=== PATIENT | female | born 1935 | race Caucasian/White ===

== ENCOUNTER 2017-04-01 11:45 | Inpatient (IN) ==
[2017-04-01] MEDS ORDERED: HYDROmorphone 2 MG/1 ML VIAL ONE (13:04)
[2017-04-01] MEDS ORDERED: ONDANSETRON 4 MG/2 ML VIAL ONE (13:04)
[2017-04-01] MEDS ORDERED: HYDROmorphone 2 MG/1 ML VIAL IV STA (13:11)
[2017-04-01] MEDS ORDERED: ONDANSETRON 4 MG/2 ML VIAL IV STA (13:12)
[2017-04-01 14:00] LABS: Basophils # 0.1 10*3/uL (0.0-0.2); Basophils % 0.7 % (0.0-0.8); Eosinophils # 0.1 10*3/uL (0.0-0.87); Eosinophils % 0.7 % (0.00-10.9); Hematocrit 29.6 VOL% (35.7-47.0); Hemoglobin 8.9 GM/DL (12.0-16.0); Immature Granulocytes % 0.4 %; Immature Granulocytes Absolute 0.04 #; Lymphocytes # 1.2 10*3/uL (1.4-4.0); Lymphocytes % 11.8 % (21.3-54.2); Mean Corpuscular HGB Conc 30.1 GM/DL (32-36); Mean Corpuscular Hemoglobin 24 PG (27-34); Mean Corpuscular Volume 81.1 FL (87-102); Mean Platelet Volume 10.5 FL (9.6-12.0); Monocytes # 0.4 10*3/uL (0.11-0.8); Monocytes % 4.3 % (1.7-12.7); Neutrophils # 8.4 10*3/uL (1.4-7.4); Neutrophils % 82.1 % (38.7-73.9); Platelet Count 221 T/CUMM (130-400); Red Blood Count 3.65 MC/CUMM (3.8-5.5); Red Cell Distribution Width 14.3 % (9.3-17.3); White Blood Count 10.2 T/CUMM (4-12)
[2017-04-01 14:08] LABS: INR 1.1; PT Patient Result 11.8 SECS
[2017-04-01 14:18] LABS: Albumin 3.3 G/DL (3.4-5.0); Bilirubin,Total 1.2 MG/DL (0.2-1.0); Calcium 8.4 MG/DL (8.5-10.1); Osmolality,Calculated 284.3 MOS/KG (273-304); Potassium 3.9 MMOL/L (3.5-5.1); Total Protein 6.4 G/DL (6.4-8.3)
[2017-04-01] MEDS ORDERED: ACETAMINOPHEN 325 MG TABLET PO PRN (15:04)
[2017-04-01] MEDS ORDERED: HYDROmorphone 2 MG/1 ML VIAL IV PRN (15:04)
[2017-04-01] MEDS ORDERED: DEXTROSE 50% 25 GM/50 ML VIAL IV PRN (16:39)
[2017-04-01] MEDS ORDERED: GLUCAGON 1 MG VIAL IM PRN (16:39)
[2017-04-01] MEDS: DEXT 5% LACT RING KCL 20 MEQ 20 MEQ/1,000 ML BAG IV SCH (18:00)
[2017-04-01] MEDS: INSULIN LISPRO 100 UNIT/ML SUBCUT SCH (21:07)
[2017-04-01] MEDS: METOPROLOL TARTRATE 25 MG TABLET PO SCH (21:08)
[2017-04-01] MEDS: DOCUSATE SODIUM 100 MG CAPSULE PO SCH (21:08)
[2017-04-01] MEDS: ATORVASTATIN 80 MG TABLET PO SCH (21:08)
[2017-04-01] MEDS: MORPHINE 2 MG/1 ML SYRINGE IV PRN (22:12)
[2017-04-02] MEDS: DEXT 5% LACT RING KCL 20 MEQ 20 MEQ/1,000 ML BAG IV SCH (04:00)
[2017-04-02 04:10] LABS: Basophils % 0.4 % (0.0-0.8); Eosinophils # 0.2 10*3/uL (0.0-0.87); Eosinophils % 1.6 % (0.00-10.9); Hematocrit 26.6 VOL% (35.7-47.0); Immature Granulocytes % 0.3 %; Immature Granulocytes Absolute 0.03 #; Lymphocytes # 1.8 10*3/uL (1.4-4.0); Lymphocytes % 19.5 % (21.3-54.2); Mean Corpuscular HGB Conc 30.1 GM/DL (32-36); Mean Corpuscular Hemoglobin 25 PG (27-34); Mean Corpuscular Volume 81.6 FL (87-102); Mean Platelet Volume 10.4 FL (9.6-12.0); Monocytes # 0.6 10*3/uL (0.11-0.8); Monocytes % 6.1 % (1.7-12.7); Neutrophils # 6.8 10*3/uL (1.4-7.4); Neutrophils % 72.1 % (38.7-73.9); Platelet Count 209 T/CUMM (130-400); Red Blood Count 3.26 MC/CUMM (3.8-5.5); Red Cell Distribution Width 14.3 % (9.3-17.3); White Blood Count 9.5 T/CUMM (4-12)
[2017-04-02 04:44] LABS: Calcium 8.2 MG/DL (8.5-10.1); Osmolality,Calculated 288.3 MOS/KG (273-304); Potassium 4.5 MMOL/L (3.5-5.1)
[2017-04-02] MEDS: MORPHINE 2 MG/1 ML SYRINGE IV PRN ×3 (05:52→21:58)
[2017-04-02] MEDS ORDERED: SODIUM CHLORIDE 0.9% 1,000 ML IV PRN ×2 (07:26→16:42)
[2017-04-02 08:47] LABS: Hematocrit 26.8 VOL% (35.7-47.0); Hemoglobin 8.1 GM/DL (12.0-16.0)
[2017-04-02] MEDS: METOPROLOL TARTRATE 25 MG TABLET PO SCH ×2 (09:49→21:58)
[2017-04-02] MEDS: VALSARTAN/HCTZ 80-12.5 MG TABLET PO SCH (09:49)
[2017-04-02] MEDS: DOCUSATE SODIUM 100 MG CAPSULE PO SCH ×2 (09:49→21:57)
[2017-04-02] MEDS: PANTOPRAZOLE 40 MG TABLET PO SCH (09:49)
[2017-04-02] MEDS: INSULIN LISPRO 100 UNIT/ML SUBCUT SCH ×3 (09:49→17:00)
[2017-04-02] MEDS ORDERED: BACITRACIN OINT 0.9 GM PACK TOP ONE (10:13)
[2017-04-02 10:15] LABS: Apearance,Urine CLEAR (Clear); Bacteria,Urine Occasional /HPF (Few); Bilirubin,Urine Negative (Negative); Blood, Urine Small mg/dL (Negative); Glucose,Urine (UA) Negative (Negative); Ketones,Urine Negative (Negative); Mucus,Urine Occasional /LPF (Occasional); Nitrite,Urine Negative (Negative); Protein,Urine Negative; RBC,Urine 3 /HPF (0-4); Squamous Epithelial Cell,Urine Occasional /HPF (0-10); Urine Color Colorless (Yellow); Urine Specific Gravity 1.003 (1.001-1.035); Urine Urobilinogen < 2.0 EU/DL (0.2-1.0); WBC,Urine 6 /HPF (0-6)
[2017-04-02] MEDS ORDERED: ceFAZolin 1,000 MG in SYRINGE 1 EACH IV ONE (11:05)
[2017-04-02] MEDS ORDERED: ceFAZolin 1,000 MG VIAL ONE (11:06)
[2017-04-02 12:16] LABS: Free T4 (Free Thyroxine) 1.03 NG/DL (0.76-1.46); Thyroid Stimulating Hormone 1.2 uIU/ml (0.358-3.74)
[2017-04-02] MEDS ORDERED: PROPOFOL 200 MG/20 ML VIAL IV ONE (12:27)
[2017-04-02] MEDS ORDERED: fentaNYL 100 MCG/2 ML VIAL ONE (12:27)
[2017-04-02] MEDS ORDERED: ONDANSETRON 4 MG/2 ML VIAL ONE ×2 (12:27→12:50)
[2017-04-02] MEDS ORDERED: MAGNESIUM HYDROXIDE SUSP 30 ML UDCUP PO PRN (12:30)
[2017-04-02] MEDS ORDERED: ROCURONIUM 100 MG/10 ML VIAL IV ONE (12:31)
[2017-04-02] MEDS ORDERED: ONDANSETRON 4 MG/2 ML VIAL IV PRN (12:36)
[2017-04-02] MEDS ORDERED: HYDROmorphone 2 MG/1 ML VIAL ONE (12:50)
[2017-04-02] MEDS: HYDROmorphone 2 MG/1 ML VIAL IV PRN ×2 (12:53→13:03)
[2017-04-02 12:59] LABS: Folate 19.2 NG/ML (5.4-24.0); Vitamin B12 211 PG/ML (211-911)
[2017-04-02 14:21] LABS: Basophils % 0.3 % (0.0-0.8); Eosinophils # 0.2 10*3/uL (0.0-0.87); Eosinophils % 1.6 % (0.00-10.9); Hematocrit 26.1 VOL% (35.7-47.0); Immature Granulocytes % 0.5 %; Immature Granulocytes Absolute 0.06 #; Lymphocytes # 1.6 10*3/uL (1.4-4.0); Lymphocytes % 14.1 % (21.3-54.2); Mean Corpuscular HGB Conc 30.7 GM/DL (32-36); Mean Corpuscular Hemoglobin 25 PG (27-34); Mean Corpuscular Volume 81.1 FL (87-102); Mean Platelet Volume 10.7 FL (9.6-12.0); Monocytes # 0.6 10*3/uL (0.11-0.8); Monocytes % 5.3 % (1.7-12.7); Neutrophils # 9.1 10*3/uL (1.4-7.4); Neutrophils % 78.2 % (38.7-73.9); Platelet Count 207 T/CUMM (130-400); Red Blood Count 3.22 MC/CUMM (3.8-5.5); Red Cell Distribution Width 14.3 % (9.3-17.3); White Blood Count 11.6 T/CUMM (4-12)
[2017-04-02 15:28] LABS: Sedimentation Rate-Westergren 35 MM/HR (0-30)
[2017-04-02] MEDS: ONDANSETRON 4 MG/2 ML VIAL IV PRN ×2 (15:45→22:00)
[2017-04-02] MEDS: CEFAZOLIN IV SCH (17:55)
[2017-04-02] MEDS: ATORVASTATIN 80 MG TABLET PO SCH (21:58)
[2017-04-03] MEDS: INSULIN LISPRO 100 UNIT/ML SUBCUT SCH ×5 (00:02→20:45)
[2017-04-03] MEDS: MORPHINE 2 MG/1 ML SYRINGE IV PRN ×4 (03:13→19:33)
[2017-04-03] MEDS: CEFAZOLIN IV SCH ×3 (03:15→17:45)
[2017-04-03] MEDS: DEXT 5% LACT RING KCL 20 MEQ 20 MEQ/1,000 ML BAG IV SCH ×2 (03:22→03:27)
[2017-04-03 07:22] LABS: Basophils % 0.5 % (0.0-0.8); Eosinophils # 0.2 10*3/uL (0.0-0.87); Eosinophils % 2.4 % (0.00-10.9); Hematocrit 34.2 VOL% (35.7-47.0); Hemoglobin 10.5 GM/DL (12.0-16.0); Immature Granulocytes % 0.5 %; Immature Granulocytes Absolute 0.04 #; Lymphocytes # 1.5 10*3/uL (1.4-4.0); Lymphocytes % 19.7 % (21.3-54.2); Mean Corpuscular HGB Conc 30.7 GM/DL (32-36); Mean Corpuscular Hemoglobin 25 PG (27-34); Mean Corpuscular Volume 82.6 FL (87-102); Mean Platelet Volume 10.7 FL (9.6-12.0); Monocytes # 0.6 10*3/uL (0.11-0.8); Monocytes % 8.4 % (1.7-12.7); Neutrophils # 5.2 10*3/uL (1.4-7.4); Neutrophils % 68.5 % (38.7-73.9); Platelet Count 173 T/CUMM (130-400); Red Cell Distribution Width 14.8 % (9.3-17.3); White Blood Count 7.6 T/CUMM (4-12)
[2017-04-03 07:28] LABS: Red Blood Count 4.14 MC/CUMM (3.8-5.5)
[2017-04-03 07:50] LABS: Calcium 8.2 MG/DL (8.5-10.1); Magnesium 1.5 MG/DL (1.8-2.4); Osmolality,Calculated 281.5 MOS/KG (273-304); Potassium 4.4 MMOL/L (3.5-5.1)
[2017-04-03] MEDS ORDERED: ALUMINUM/MAGNES/SIMETH MAX STR 30 ML UDCUP PO PRN (08:36)
[2017-04-03] MEDS: VALSARTAN/HCTZ 80-12.5 MG TABLET PO SCH (09:58)
[2017-04-03] MEDS: MAGNESIUM CHLORIDE 64 MG TABLET PO SCH ×2 (09:58→20:41)
[2017-04-03] MEDS: APIXABAN 2.5 MG TABLET PO SCH ×2 (09:58→20:40)
[2017-04-03] MEDS: DOCUSATE SODIUM 100 MG CAPSULE PO SCH ×2 (09:58→20:41)
[2017-04-03] MEDS: METOPROLOL TARTRATE 25 MG TABLET PO SCH ×2 (09:58→20:40)
[2017-04-03] MEDS: PANTOPRAZOLE 40 MG TABLET PO SCH (09:58)
[2017-04-03] MEDS: ATORVASTATIN 80 MG TABLET PO SCH (20:40)
[2017-04-03] MEDS: glipiZIDE 5 MG TABLET PO SCH (20:41)
[2017-04-04] MEDS: CEFAZOLIN IV SCH ×3 (01:38→17:12)
[2017-04-04 06:21] LABS: Basophils # 0.1 10*3/uL (0.0-0.2); Basophils % 0.6 % (0.0-0.8); Eosinophils # 0.1 10*3/uL (0.0-0.87); Eosinophils % 1.6 % (0.00-10.9); Hematocrit 33.4 VOL% (35.7-47.0); Hemoglobin 10.5 GM/DL (12.0-16.0); Immature Granulocytes % 0.5 %; Immature Granulocytes Absolute 0.04 #; Lymphocytes # 1.7 10*3/uL (1.4-4.0); Lymphocytes % 19.8 % (21.3-54.2); Mean Corpuscular HGB Conc 31.4 GM/DL (32-36); Mean Corpuscular Hemoglobin 26 PG (27-34); Mean Corpuscular Volume 81.9 FL (87-102); Mean Platelet Volume 10.3 FL (9.6-12.0); Monocytes # 0.6 10*3/uL (0.11-0.8); Monocytes % 7.4 % (1.7-12.7); Neutrophils # 6.1 10*3/uL (1.4-7.4); Neutrophils % 70.1 % (38.7-73.9); Platelet Count 178 T/CUMM (130-400); Red Blood Count 4.08 MC/CUMM (3.8-5.5); White Blood Count 8.6 T/CUMM (4-12)
[2017-04-04 06:54] LABS: Calcium 8.3 MG/DL (8.5-10.1); Osmolality,Calculated 280.5 MOS/KG (273-304); Potassium 3.7 MMOL/L (3.5-5.1)
[2017-04-04 06:56] LABS: Calcium 8.1 MG/DL (8.5-10.1); Osmolality,Calculated 278.7 MOS/KG (273-304); Potassium 3.6 MMOL/L (3.5-5.1)
[2017-04-04] MEDS: INSULIN LISPRO 100 UNIT/ML SUBCUT SCH ×4 (08:18→21:09)
[2017-04-04] MEDS: MAGNESIUM CHLORIDE 64 MG TABLET PO SCH ×2 (09:12→21:07)
[2017-04-04] MEDS: DOCUSATE SODIUM 100 MG CAPSULE PO SCH ×2 (09:13→21:07)
[2017-04-04] MEDS: VALSARTAN/HCTZ 80-12.5 MG TABLET PO SCH (09:13)
[2017-04-04] MEDS: glipiZIDE 5 MG TABLET PO SCH ×2 (09:13→21:07)
[2017-04-04] MEDS: APIXABAN 2.5 MG TABLET PO SCH ×2 (09:13→21:07)
[2017-04-04] MEDS: PANTOPRAZOLE 40 MG TABLET PO SCH (09:13)
[2017-04-04] MEDS: METOPROLOL TARTRATE 25 MG TABLET PO SCH ×2 (09:13→21:07)
[2017-04-04] MEDS: ATORVASTATIN 80 MG TABLET PO SCH (21:07)
[2017-04-05] MEDS: CEFAZOLIN IV SCH ×3 (01:50→16:04)
[2017-04-05 06:17] LABS: Basophils % 0.4 % (0.0-0.8); Eosinophils # 0.2 10*3/uL (0.0-0.87); Eosinophils % 2.9 % (0.00-10.9); Hematocrit 32.4 VOL% (35.7-47.0); Hemoglobin 10.2 GM/DL (12.0-16.0); Immature Granulocytes % 0.5 %; Immature Granulocytes Absolute 0.04 #; Lymphocytes # 1.4 10*3/uL (1.4-4.0); Lymphocytes % 17.8 % (21.3-54.2); Mean Corpuscular HGB Conc 31.5 GM/DL (32-36); Mean Corpuscular Hemoglobin 26 PG (27-34); Mean Corpuscular Volume 82.4 FL (87-102); Mean Platelet Volume 10.8 FL (9.6-12.0); Monocytes # 0.5 10*3/uL (0.11-0.8); Monocytes % 5.7 % (1.7-12.7); Neutrophils # 5.7 10*3/uL (1.4-7.4); Neutrophils % 72.7 % (38.7-73.9); Platelet Count 169 T/CUMM (130-400); Red Blood Count 3.93 MC/CUMM (3.8-5.5); Red Cell Distribution Width 15.1 % (9.3-17.3); White Blood Count 7.8 T/CUMM (4-12)
[2017-04-05 06:43] LABS: Calcium 7.9 MG/DL (8.5-10.1); Magnesium 2.1 MG/DL (1.8-2.4); Osmolality,Calculated 281.4 MOS/KG (273-304); Potassium 3.7 MMOL/L (3.5-5.1)
[2017-04-05] MEDS: INSULIN LISPRO 100 UNIT/ML SUBCUT SCH ×5 (09:30→21:20)
[2017-04-05] MEDS: DOCUSATE SODIUM 100 MG CAPSULE PO SCH ×2 (09:33→20:18)
[2017-04-05] MEDS: glipiZIDE 5 MG TABLET PO SCH ×2 (09:34→20:18)
[2017-04-05] MEDS: VALSARTAN/HCTZ 80-12.5 MG TABLET PO SCH (09:34)
[2017-04-05] MEDS: APIXABAN 2.5 MG TABLET PO SCH (09:34)
[2017-04-05] MEDS: METOPROLOL TARTRATE 25 MG TABLET PO SCH ×2 (09:35→20:19)
[2017-04-05] MEDS: MAGNESIUM CHLORIDE 64 MG TABLET PO SCH ×2 (09:35→20:19)
[2017-04-05] MEDS: PANTOPRAZOLE 40 MG TABLET PO SCH (09:35)
[2017-04-05] MEDS: ATORVASTATIN 80 MG TABLET PO SCH (20:19)
[2017-04-05] MEDS ORDERED: APIXABAN 2.5 MG TABLET PO SCH (21:00)
[2017-04-06] MEDS ORDERED: APIXABAN 2.5 MG TABLET PO SCH (00:01)
[2017-04-06] MEDS: CEFAZOLIN IV SCH ×2 (01:25→10:09)
[2017-04-06 05:38] LABS: Basophils # 0.1 10*3/uL (0.0-0.2); Basophils % 0.6 % (0.0-0.8); Eosinophils # 0.3 10*3/uL (0.0-0.87); Hematocrit 32.1 VOL% (35.7-47.0); Hemoglobin 10.2 GM/DL (12.0-16.0); Immature Granulocytes % 0.3 %; Immature Granulocytes Absolute 0.02 #; Lymphocytes # 1.7 10*3/uL (1.4-4.0); Lymphocytes % 21.6 % (21.3-54.2); Mean Corpuscular HGB Conc 31.8 GM/DL (32-36); Mean Corpuscular Hemoglobin 26 PG (27-34); Mean Corpuscular Volume 81.3 FL (87-102); Mean Platelet Volume 10.5 FL (9.6-12.0); Monocytes # 0.5 10*3/uL (0.11-0.8); Monocytes % 6.2 % (1.7-12.7); Neutrophils # 5.2 10*3/uL (1.4-7.4); Neutrophils % 67.3 % (38.7-73.9); Platelet Count 183 T/CUMM (130-400); Red Blood Count 3.95 MC/CUMM (3.8-5.5); Red Cell Distribution Width 15.2 % (9.3-17.3); White Blood Count 7.7 T/CUMM (4-12)
[2017-04-06 06:07] LABS: Calcium 7.8 MG/DL (8.5-10.1); Magnesium 2.5 MG/DL (1.8-2.4); Osmolality,Calculated 284.1 MOS/KG (273-304)
[2017-04-06] MEDS ORDERED: APIXABAN 5 MG TABLET PO SCH (09:00)
[2017-04-06] MEDS: INSULIN LISPRO 100 UNIT/ML SUBCUT SCH ×2 (09:16→12:32)
[2017-04-06] MEDS: MAGNESIUM CHLORIDE 64 MG TABLET PO SCH (10:03)
[2017-04-06] MEDS: VALSARTAN/HCTZ 80-12.5 MG TABLET PO SCH (10:04)
[2017-04-06] MEDS: glipiZIDE 5 MG TABLET PO SCH (10:05)
[2017-04-06] MEDS: PANTOPRAZOLE 40 MG TABLET PO SCH (10:05)
[2017-04-06] MEDS: DOCUSATE SODIUM 100 MG CAPSULE PO SCH (10:06)
[2017-04-06] MEDS: METOPROLOL TARTRATE 25 MG TABLET PO SCH (10:06)
[2017-04-06 11:41] VITALS: BP 134/72
== END 2017-04-06 14:50 | DRG 481 ==
LOC: EDUNIT# → EDBD → N.ED 11:45 → N.EDINP 13:21 → N.3E 14:44
PROVIDERS: ADMIT Family Medicine; ATTEND Family Medicine

== ENCOUNTER 2020-06-19 05:33 | Inpatient (IN) ==
[2020-06-19] MEDS ORDERED: LACTATED RINGERS 1,000 ML IV SCH (06:00)
[2020-06-19] MEDS ORDERED: ACETAMINOPHEN 500 MG TABLET PO ONE (06:00)
[2020-06-19] MEDS ORDERED: GABAPENTIN 400 MG CAPSULE PO ONE (06:00)
[2020-06-19] MEDS ORDERED: FAMOTIDINE 20 MG TABLET PO ONE (06:00)
[2020-06-19] MEDS ORDERED: BACITRACIN OINT 0.9 GM PACK TOP ONE (06:13)
[2020-06-19] MEDS ORDERED: VANCOMYCIN 1,000 MG VIAL ONE (07:11)
[2020-06-19] MEDS ORDERED: ceFAZolin 1,000 MG VIAL ONE (07:11)
[2020-06-19] MEDS ORDERED: MIDAZOLAM 2 MG/2 ML VIAL ONE (08:56)
[2020-06-19] MEDS ORDERED: propofoL 200 MG/20 ML VIAL IV ONE ×2 (08:56→11:08)
[2020-06-19] MEDS ORDERED: ONDANSETRON 4 MG/2 ML VIAL ONE (08:56)
[2020-06-19] MEDS ORDERED: ETOMIDATE 40 MG/20 ML VIAL IV ONE (08:56)
[2020-06-19] MEDS ORDERED: fentaNYL 100 MCG/2 ML VIAL ONE (08:57)
[2020-06-19] MEDS ORDERED: BUPIVACAINE SPINAL 0.75% 2 ML AMP SPINAL ONE (08:57)
[2020-06-19] MEDS ORDERED: PHENYLEPHRINE 10 MG/1 ML VIAL IV ONE (08:59)
[2020-06-19] MEDS ORDERED: DEXAMETHASONE 4 MG/1 ML VIAL ONE ×2 (09:52→11:26)
[2020-06-19] MEDS ORDERED: ROPIVACAINE 0.5% 30 ML VIAL ONE (09:52)
[2020-06-19] MEDS ORDERED: LIDOCAINE 1% 5 ML VIAL ONE (09:53)
[2020-06-19] MEDS ORDERED: ROCURONIUM 50 MG/5 ML VIAL IV ONE (10:55)
[2020-06-19] MEDS ORDERED: SODIUM CHLORIDE 0.9% 250 ML IV ONE (11:09)
[2020-06-19] MEDS ORDERED: SODIUM CHLORIDE 0.9% 100 ML IV ONE (11:09)
[2020-06-19] MEDS ORDERED: KETAMINE 500 MG/10 ML VIAL ONE (11:38)
[2020-06-19] MEDS ORDERED: TRANEXAMIC ACID 1,000 MG/10 ML VIAL ONE (11:44)
[2020-06-19] MEDS ORDERED: GLYCOPYRROLATE 0.4 MG/2 ML VIAL ONE (13:09)
[2020-06-19] MEDS ORDERED: NEOSTIGMINE 10 MG/10 ML VIAL ONE (13:09)
[2020-06-19] MEDS ORDERED: LACTATED RINGERS 1,000 ML IV ONE (13:09)
[2020-06-19 13:21] LABS: Bilirubin,Urine Negative (Negative); Blood, Urine Negative (Negative); Glucose,Urine (UA) Negative (Negative); Hyaline Casts,Urine 1 /LPF (0-3); Ketones,Urine Negative (Negative); Mucus,Urine Occasional /LPF (Occasional); Nitrite,Urine Negative (Negative); Protein,Urine Negative; RBC,Urine <1 /HPF (0-4); Squamous Epithelial Cell,Urine Occasional /HPF (0-10); Urine Appearance CLEAR (Clear); Urine Color Yellow (Yellow); Urine Urobilinogen < 2.0 EU/DL (0.2-1.0); WBC,Urine 1 /HPF (0-6)
[2020-06-19] MEDS ORDERED: POLYETHYLENE GLYCOL POWDER 17 GM PACK PO PRN (13:56)
[2020-06-19] MEDS ORDERED: KETOROLAC 15 MG/1 ML VIAL IV PRN (13:57)
[2020-06-19] MEDS ORDERED: ONDANSETRON 4 MG/2 ML VIAL IV PRN (13:57)
[2020-06-19] MEDS ORDERED: diphenhydrAMINE CAP 25 MG CAPSULE PO PRN (13:57)
[2020-06-19] MEDS ORDERED: MORPHINE 4 MG/1 ML VIAL IV PRN ×2 (13:57)
[2020-06-19] MEDS ORDERED: MAGNESIUM HYDROXIDE SUSP 30 ML UDCUP PO PRN (13:57)
[2020-06-19] MEDS ORDERED: DEXTROSE 50% 25 GM/50 ML VIAL IV PRN (14:00)
[2020-06-19] MEDS ORDERED: GLUCAGON 1 MG VIAL IM PRN (14:00)
[2020-06-19] MEDS ORDERED: KETOROLAC 30 MG/1 ML VIAL ONE (14:21)
[2020-06-19] MEDS ORDERED: MORPHINE 10 MG/1 ML VIAL ONE (14:36)
[2020-06-19] MEDS: LACTATED RINGERS 1,000 ML IV SCH (15:06)
[2020-06-19] MEDS: INSULIN LISPRO 100 UNIT/ML SUBCUT SCH ×2 (16:00→21:14)
[2020-06-19] MEDS: CIPROFLOXACIN 500 MG TABLET PO SCH (18:04)
[2020-06-19] MEDS: ceFAZolin 2,000 MG in PREMIX 1 EACH IV SCH (18:04)
[2020-06-19] MEDS: DOCUSATE SODIUM 100 MG CAPSULE PO SCH (20:35)
[2020-06-19] MEDS: ATORVASTATIN 80 MG TABLET PO SCH (20:35)
[2020-06-19] MEDS: APIXABAN 2.5 MG TABLET PO SCH (20:35)
[2020-06-19] MEDS: METOPROLOL TARTRATE 25 MG TABLET PO SCH (20:35)
[2020-06-20] MEDS: LACTATED RINGERS 1,000 ML IV SCH (02:23)
[2020-06-20] MEDS: ceFAZolin 2,000 MG in PREMIX 1 EACH IV SCH (02:24)
[2020-06-20 05:51] LABS: Basophils % 0.1 % (0.0-0.8); Hematocrit 30.3 VOL% (35.7-47.0); Hemoglobin 9.1 GM/DL (12.0-16.0); Immature Granulocytes % 0.4 %; Immature Granulocytes Absolute 0.05 #; Lymphocytes # 1.3 10*3/uL (1.4-4.0); Lymphocytes % 11.4 % (21.3-54.2); Mean Corpuscular Volume 86.6 FL (87-102); Mean Platelet Volume 10.1 FL (9.6-12.0); Monocytes % 5.6 % (1.7-12.7); Neutrophils % 82.5 % (38.7-73.9); Platelet Count 224 T/CUMM (130-400); Red Cell Distribution Width 15.9 % (9.3-17.3); White Blood Count 11.1 T/CUMM (4-12)
[2020-06-20 06:10] LABS: Calcium 8.4 MG/DL (8.5-10.1); Osmolality,Calculated 282.8 MOS/KG (273-304); Potassium 4.5 MMOL/L (3.5-5.1)
[2020-06-20] MEDS ORDERED: BENZOCAINE/MENTHOL LOZENGE 18/BOX PO PRN (07:11)
[2020-06-20] MEDS ORDERED: DEXTROSE 50% 25 GM/50 ML VIAL IV PRN (08:27)
[2020-06-20] MEDS ORDERED: GLUCAGON 1 MG VIAL IM PRN (08:27)
[2020-06-20] MEDS ORDERED: PIOGLITAZONE 15 MG TABLET PO SCH (09:00)
[2020-06-20] MEDS: hydroCHLOROthiazide 12.5 MG CAPSULE PO SCH (09:22)
[2020-06-20] MEDS: glipiZIDE 5 MG TABLET PO SCH (09:22)
[2020-06-20] MEDS: LOSARTAN 50 MG TABLET PO SCH (09:22)
[2020-06-20] MEDS: CIPROFLOXACIN 500 MG TABLET PO SCH ×2 (09:22→16:52)
[2020-06-20] MEDS: ASPIRIN CHEW 81 MG TABLET PO SCH (09:23)
[2020-06-20] MEDS: DOCUSATE SODIUM 100 MG CAPSULE PO SCH ×2 (09:24→20:59)
[2020-06-20] MEDS: MULTIVITAMIN (CENTRUM) TABLET PO SCH (09:24)
[2020-06-20] MEDS: APIXABAN 2.5 MG TABLET PO SCH ×2 (09:25→20:59)
[2020-06-20] MEDS: METOPROLOL TARTRATE 25 MG TABLET PO SCH ×2 (09:31→20:59)
[2020-06-20] MEDS: INSULIN LISPRO 100 UNIT/ML SUBCUT SCH ×4 (09:36→20:59)
[2020-06-20] MEDS: ATORVASTATIN 80 MG TABLET PO SCH (20:59)
[2020-06-20] MEDS: PIOGLITAZONE 15 MG TABLET PO SCH (20:59)
[2020-06-20] MEDS: ASCORBIC ACID 500 MG TABLET PO SCH (20:59)
[2020-06-21 05:53] LABS: Basophils % 0.5 % (0.0-0.8); Eosinophils # 0.2 10*3/uL (0.0-0.87); Eosinophils % 2.9 % (0.00-10.9); Hematocrit 26.5 VOL% (35.7-47.0); Immature Granulocytes % 0.4 %; Immature Granulocytes Absolute 0.03 #; Lymphocytes # 2.1 10*3/uL (1.4-4.0); Lymphocytes % 27.8 % (21.3-54.2); Mean Corpuscular HGB Conc 30.2 GM/DL (32-36); Mean Corpuscular Volume 87.7 FL (87-102); Mean Platelet Volume 10.5 FL (9.6-12.0); Monocytes % 7.6 % (1.7-12.7); Neutrophils % 60.8 % (38.7-73.9); Platelet Count 191 T/CUMM (130-400); Red Blood Count 3.02 MC/CUMM (3.8-5.5); Red Cell Distribution Width 16.7 % (9.3-17.3); White Blood Count 7.6 T/CUMM (4-12)
[2020-06-21 06:12] LABS: Calcium 8.1 MG/DL (8.5-10.1); Osmolality,Calculated 288.1 MOS/KG (273-304); Potassium 3.7 MMOL/L (3.5-5.1)
[2020-06-21] MEDS: INSULIN LISPRO 100 UNIT/ML SUBCUT SCH ×4 (06:44→21:11)
[2020-06-21] MEDS ORDERED: MAGNESIUM SULF RIDER 4 GM in PREMIX 1 EACH IV PRN ×2 (07:30→07:31)
[2020-06-21] MEDS ORDERED: MAGNESIUM SULF RIDER 2 GM in PREMIX 1 EACH IV ONE (08:00)
[2020-06-21] MEDS: CIPROFLOXACIN 500 MG TABLET PO SCH ×2 (08:41→17:08)
[2020-06-21] MEDS: glipiZIDE 5 MG TABLET PO SCH (08:41)
[2020-06-21] MEDS: ASPIRIN CHEW 81 MG TABLET PO SCH (08:41)
[2020-06-21] MEDS: METOPROLOL TARTRATE 25 MG TABLET PO SCH ×2 (08:42→20:27)
[2020-06-21] MEDS: DOCUSATE SODIUM 100 MG CAPSULE PO SCH ×2 (08:42→20:27)
[2020-06-21] MEDS: MULTIVITAMIN (CENTRUM) TABLET PO SCH (08:42)
[2020-06-21] MEDS: APIXABAN 2.5 MG TABLET PO SCH ×2 (08:42→20:27)
[2020-06-21] MEDS: ASCORBIC ACID 500 MG TABLET PO SCH ×2 (08:43→20:27)
[2020-06-21] MEDS: hydroCHLOROthiazide 12.5 MG CAPSULE PO SCH (09:00)
[2020-06-21] MEDS: LOSARTAN 50 MG TABLET PO SCH (09:00)
[2020-06-21] MEDS: PIOGLITAZONE 15 MG TABLET PO SCH (20:27)
[2020-06-21] MEDS: ATORVASTATIN 80 MG TABLET PO SCH (20:27)
[2020-06-22 05:20] LABS: Basophils # 0.1 10*3/uL (0.0-0.2); Basophils % 0.6 % (0.0-0.8); Eosinophils # 0.3 10*3/uL (0.0-0.87); Eosinophils % 3.4 % (0.00-10.9); Hemoglobin 8.2 GM/DL (12.0-16.0); Immature Granulocytes % 0.9 %; Immature Granulocytes Absolute 0.08 #; Lymphocytes # 1.8 10*3/uL (1.4-4.0); Lymphocytes % 21.7 % (21.3-54.2); Mean Corpuscular HGB Conc 30.4 GM/DL (32-36); Mean Corpuscular Volume 87.1 FL (87-102); Mean Platelet Volume 10.3 FL (9.6-12.0); Monocytes % 7.4 % (1.7-12.7); Platelet Count 191 T/CUMM (130-400); Red Cell Distribution Width 16.8 % (9.3-17.3); White Blood Count 8.5 T/CUMM (4-12)
[2020-06-22 05:40] LABS: Calcium 8.1 MG/DL (8.5-10.1); Osmolality,Calculated 283.4 MOS/KG (273-304); Potassium 4.2 MMOL/L (3.5-5.1)
[2020-06-22] MEDS: INSULIN LISPRO 100 UNIT/ML SUBCUT SCH (07:24)
[2020-06-22] MEDS: DOCUSATE SODIUM 100 MG CAPSULE PO SCH (08:35)
[2020-06-22] MEDS: LOSARTAN 50 MG TABLET PO SCH (08:35)
[2020-06-22] MEDS: hydroCHLOROthiazide 12.5 MG CAPSULE PO SCH (08:35)
[2020-06-22] MEDS: APIXABAN 2.5 MG TABLET PO SCH (08:35)
[2020-06-22] MEDS: CIPROFLOXACIN 500 MG TABLET PO SCH (08:35)
[2020-06-22] MEDS: ASCORBIC ACID 500 MG TABLET PO SCH (08:35)
[2020-06-22] MEDS: METOPROLOL TARTRATE 25 MG TABLET PO SCH (08:35)
[2020-06-22] MEDS: ASPIRIN CHEW 81 MG TABLET PO SCH (08:36)
[2020-06-22] MEDS: MULTIVITAMIN (CENTRUM) TABLET PO SCH (08:36)
[2020-06-22] MEDS: glipiZIDE 5 MG TABLET PO SCH (08:36)
[2020-06-22 11:20] VITALS: BP 101/61
== END 2020-06-22 11:55 | disposition swing bed (61) | DRG 470 ==
LOC: N.OR 05:33 → N.SDSINP 05:37 → EDSTATUS 11:30 → N.SDSINP 13:57 → N.3E 14:56
PROVIDERS: ADMIT Orthopaedic Surgery; ATTEND Orthopaedic Surgery